=== PATIENT | female | born 1930 | race Caucasian/White ===

== ENCOUNTER 2018-02-01 05:24 | Day surgery (SDC) | payer OTHER, MEDICARE ==
[~2018-02-01] VITALS: Ht 160 cm; Wt 73.0 kg
--- NOTE | ~2018-02-01 | O ---
[facility] [place] [address] OPERATIVE REPORT Name: JOSE CALDERON Room #: DEP [facility]#: [id number] Admission: 02/01/18 Attend Phys: Titus Clarke MD Discharge: 02/01/18 Date of : 34 Report #: [id number] THIS REPORT FOR: //name// CC: Ciro Clarke DATE OF SERVICE: 02/01/2018 MANAGER ENT: None. PREOPERATIVE DIAGNOSIS: Unilateral left upper lid ptosis. POSTOPERATIVE DIAGNOSIS: Unilateral left upper lid ptosis. OPERATION PERFORMED: Unilateral left upper lid ptosis repair. ANESTHESIA: Local anesthesia with IV sedation. COMPLICATIONS: None. 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 Visual field testing demonstrates dense superior visual defects. Retesting with the upper lid elevated shows an improvement in visual field loss of over 30% and in excess of 12 degrees. The current procedure is undertaken in order to improve the patient's visual function. Informed consent was obtained to include but not limited to the potential risks for bleeding, scarring, infection, loss of vision, failure to improve the problem, need for further surgery and need for adjustment of lid height. DESCRIPTION OF PROCEDURE: The patient was taken to the operating room, where a left upper lid crease was drawn with a skin marking pen. The incision was then made with Jonnathan scissors and dissected down to the orbital septum. Hemostasis was achieved with a monopolar cautery as it was throughout the case. The orbital septum was then entered and the preaponeurotic fat identified. The levator aponeurosis was then disinserted from the anterior surface of the tarsal plate and dissected free in the avascular Pugh's muscle plane. The aponeurosis was then advanced onto the anterior surface of the tarsal plate and reattached with mattress double-arm 6-0 Novafil sutures, adjusting for height and contour. The redundant aponeurosis was then amputated. The upper lid crease was then reformed with interrupted 6-0 chromic sutures. The skin was closed with interrupted 6-0 plain gut suture. The wound was then cleaned and dressed with ophthalmic antibiotic ointment. [facility] [address] [place] [address] OPERATIVE REPORT Name: JOES CALDERON Room #: DEP [facility].#: [id number] Admission: 02/01/18 Attend Phys: Titus Clarke MD Discharge: 02/01/18 Date of : 34 Report #: [id number] The patient was then transported to the recovery area, having tolerated the procedure well with no anesthesia or operative complications being noted. <ELECTRONICALLY SIGNED> By: Titus Clarke MD 02/12/18 0622 [id number] Titus Clarke MD /nt
[~2018-02-01 05:24] MED LIST: CALCIUM 600 +1 EAC1; LASIX 20 MG TAB20 MG PO; LOSARTAN POTASS50 MG PO; MAXZIDE 75-501 EACH; PRAVACHOL40 MG PO; TIMOPTIC2.5 M1; VITAMIN D1000 UNI1; VITAMIN D32000 UNI1 PO; ZOCOR40 MG
[2018-02-01 06:45] VITALS: BP 165/69
== END 2018-02-01 08:28 | disposition home or self-care (01) ==
LOC: OR 05:24 → TBA 05:24 → OR 08:28
DX: H02.402 Unspecified ptosis of left eyelid (principal); H53.452 Other localized visual field defect, left eye; I10 Essential (primary) hypertension; E78.00 Pure hypercholesterolemia, unspecified; H40.9 Unspecified glaucoma; Z98.41 Cataract extraction status, right eye; Z98.42 Cataract extraction status, left eye; Z98.890 Other specified postprocedural states; Z96.651 Presence of right artificial knee joint; Z90.49 Acquired absence of other specified parts of digestive tract; Z79.899 Other long term (current) drug therapy; Z88.2 Allergy status to sulfonamides
CPT/HCPCS: 50010; 50101; 50386; 50398; 51636; 56528; 56531; 62110; 62850; 70005

== ENCOUNTER 2021-01-28 08:43 | Day surgery (SDC) | payer OTHER, MEDICARE ==
[~2021-01-28] VITALS: Ht 160 cm; Wt 72.1 kg
--- NOTE | ~2021-01-28 | O ---
[facility] [place] [address] OPERATIVE REPORT Name: JOSE CALDERON Room #: 150-7 [facility] M.R.#: [id number] Admission: 01/28/21 Attend Phys: Titus Clarke MD Discharge: Date of : 34 Report #: [id number] THIS REPORT FOR: cc: Ciro Tracey MD,Ciro Clarke,Titus Scherer MD ~ cc: Ciro Tracey MD, Ciro Rubio MD DATE OF SERVICE: 01/28/2021 SURGEON: Titus Clarke MD GUEST RELATION OFFICER: None. PREOPERATIVE DIAGNOSIS: Nasolacrimal duct obstruction, left side. POSTOPERATIVE DIAGNOSIS: Nasolacrimal duct obstruction, left side. OPERATIONS PERFORMED: 1. Left-sided incisional dacryocystorhinostomy. 2. Nasal surgical video endoscopy. 3. Silicone intubation. ANESTHESIA: General. COMPLICATIONS: None. INDICATIONS FOR PROCEDURE: This patient has an acquired nasolacrimal duct obstruction with chronic tearing and discharge. The current procedures are undertaken in order to improve the patient's level of comfort and visual clarity and to reduce the risk of recurrent infection. Informed consent was obtained to include but not limited to the potential risk for loss of vision, bleeding, infection, failure to improve the problem, scarring and the potential need for further surgery. DESCRIPTION OF OPERATION: The patient was taken to the operating room, where general anesthesia was administered. The medial canthal area was then generously infiltrated with 2% Xylocaine with epinephrine mixed with equal parts of 0.75% Marcaine with Wydase. The same anesthetic mixture was then used to anesthetize the lateral wall of the nose. The middle meatus was then packed with Afrin-soaked Cottonoids. The patient was subsequently prepped and draped in the usual sterile fashion. A skin-marking pen was then used to outline an incision over the anterior lacrimal crest inferiorly in the medial canthal area. The incision was then [facility] [address] [place] [address] OPERATIVE REPORT Name: JOSE CALDERON Room #: 150-7 [facility].#: [id number] Admission: 01/28/21 Attend Phys: Titus Clarke MD Discharge: Date of : 34 Report #: [id number] made with a 15 blade. The dissection was then carried down through the soft tissue until the periosteum was identified. Hemostasis was achieved with diligent monopolar cautery. The periosteum was then incised over the anterior lacrimal crest and then gently reflected laterally out of the lacrimal sac fossa. The lacrimal sac was retracted and the thin bone of the lacrimal sac fossa was gently infractured with a hemostat. Multiple rongeur bites were then used to create an osteotomy that was approximately 1.5 cm in diameter. The nasal mucosa was then injected with the same anesthetic mixture used at the beginning of the case. The nasal mucosa was then incised and an anteriorly hinged nasal mucosal flap made. The flap was drawn out of the field with interrupted 4-0 chromic sutures. The puncta were then dilated with a double-ended punctum dilator. Gale tubes were then passed into the lacrimal sac and its margins were identified. A large anteriorly hinged lacrimal sac flap was subsequently created. The Gale tubes were passed into the nose on a groove director transnasally. The anterior lacrimal sac flaps and nasal mucosal flaps were closed with interrupted 4-0 chromic sutures. The nasal surgical video endoscope was then brought into the field. The ostium was inspected and found to not be obstructed by the middle turbinate. The ostium was anterior and inferior to the root of the turbinate. There was no evidence of any septal obstruction of the newly created ostium. The subcutaneous structures around the wound were then closed with multiple interrupted 4-0 chromic sutures. The skin was closed with interrupted 6-0 plain gut sutures. The Gale tubes were then secured to themselves with 3 square throws. The Gale tubes were then secured to the lateral wall of the nose with a 5-0 Prolene suture. Antibiotic steroid drops were then placed on the surface of the eye and an antibiotic ointment on the incision. Two eye pads were then taped in place. The patient was transported to the recovery area, having tolerated the procedure well with no anesthetic or operative complications being noted. By: [id number] Titus Clarke MD /nt
[~2021-01-28 08:43] MED LIST changes: +ASA81BEC PO; +METOPROLOL SUCC25 M1 PO
[2021-01-28 09:41] VITALS: BP 166/75
== END 2021-01-28 13:30 | disposition home or self-care (01) ==
LOC: OR 08:43 → TBA 08:45 → OR 09:25
PROVIDERS: ATTEND Ophthalmology
DX: H04.552 Acquired stenosis of left nasolacrimal duct (principal); I10 Essential (primary) hypertension; E78.00 Pure hypercholesterolemia, unspecified; H40.9 Unspecified glaucoma; Z98.890 Other specified postprocedural states; Z20.822 Contact with and (suspected) exposure to COVID-19; Z79.899 Other long term (current) drug therapy; Z90.49 Acquired absence of other specified parts of digestive tract; Z96.651 Presence of right artificial knee joint; Z88.2 Allergy status to sulfonamides
CPT/HCPCS: 50010; 50101; 50386; 50398; 51636; 51777; 56528; 56531; 62110; 62900; 70005